=== PATIENT | female | born 1955 | race Caucasian/White ===

== ENCOUNTER 2016-04-30 08:11 | Day surgery (SDC) | payer OTHER ==
[2016-04-25 10:50] VITALS: BMI 24.9
[~2016-04-30 08:11] MED LIST: LACTATED RINGERS 1,000 ML IV SCH; LIDOCAINE 1% 20 ML VIAL (10MG/ML) FOR IV START INTRADERMA PRN
[2016-04-30] MEDS ORDERED: LACTATED RINGERS 1,000 ML IV ONE (08:22)
[2016-04-30 08:26] VITALS: RESP 18; TEMP 98
[2016-04-30] MEDS ORDERED: LIDOCAINE 1% 20 ML VIAL (10MG/ML) FOR IV START INTRADERMA ONE (08:33)
[2016-04-30] MEDS ORDERED: GLUCAGON 1 MG/ML VIAL ONE (08:35)
[2016-04-30] MEDS ORDERED: LIDOCAINE 1% INJ 10MG/ML (20 ML MDV) ONE (08:35)
[2016-04-30] MEDS ORDERED: PROPOFOL 10 MG/ML 20 ML VIAL IV ONE (08:35)
--- NOTE | 2016-04-30 08:40 | P.GSHP ---
History of Present Illness H&P Date: 04/30/16 Chief Complaint: Screening colonoscopy This is a 58-year-old female who presents today for screening colonoscopy. She denies any significant GI complaints. Her last colonoscopy was over 10 years ago. - Constitutional Constitutional: Reports as per HPI Past Medical History Past Medical History: GERD/Reflux Additional Past Medical History / Comment(s): OSTEOPENIA History of Any Multi-Drug Resistant Organisms: None Reported Past Surgical History: Tonsillectomy Additional Past Surgical History / Comment(s): EYE SX X 3. D & C. COLONOSCOPY X 2 Past Anesthesia/Blood Transfusion Reactions: No Reported Reaction Past Psychological History: No Psychological Hx Reported Smoking Status: Former smoker Past Alcohol Use History: Occasional Additional Past Alcohol Use History / Comment(s): QUIT SMOKING 1984 Past Drug Use History: None Reported - Past Family History Sister(s) Family Medical History: Cancer Mother Family Medical History: Cancer Medications and Allergies Home Medications Medication Instructions Recorded Confirmed Type Alendronate Sodium [Fosamax] 70 mg PO TH 04/25/16 04/25/16 History Omeprazole [PriLOSEC] 10 mg PO DAILY 04/25/16 04/30/16 History Allergies Allergy/AdvReac Type Severity Reaction Status Date / Time venom-honey bee Allergy Anaphylaxis Verified 04/25/16 10:44 Surgical - Exam Vital Signs Temp Pulse Resp BP Pulse Ox 98.0 F 75 18 127/63 98 04/30/16 08:25 04/30/16 08:25 04/30/16 08:25 04/30/16 08:25 04/30/16 08:25 - General well developed, no distress - Eyes PERRL - ENT normal pinna - Neck no masses - Respiratory normal expansion - Cardiovascular Rhythm: regular - Abdomen Abdomen: soft, non tender Assessment and Plan Plan: We'll perform screening colonoscopy.
--- NOTE | 2016-04-30 09:03 | P.OP ---
Date of Procedure: 04/30/16 Preoperative Diagnosis: Screening colonoscopy Postoperative Diagnosis: Rectal polyp Mild diverticular changes Procedure(s) Performed: Colonoscopy Anesthesia: MAC Surgeon: Damián Will Pathology: other (Rectal polyp) Condition: stable Disposition: PACU Description of Procedure: The patient's placed on the endoscopy table in the lateral position. She received IV sedation. Digital rectal exam was performed which revealed no abnormalities. The flexible colonoscope was then placed patient anus and passed throughout the entire colon. The ileocecal valve was visualized. Cecum , ascending and transverse colon appeared normal. In the descending; was some mild diverticular changes. Scope was then brought back the rectum and a small polyp seen this removed the forcep. Scope was withdrawn for patient.
[2016-04-30 09:22] VITALS: BP 103/67; PULSE 61
== END 2016-04-30 09:42 | disposition home or self-care (01) ==
LOC: ORWHC2ENDO 08:11
PROVIDERS: ATTEND Surgery
DX: Z12.11 Encounter for screening for malignant neoplasm of colon (principal); K62.1 Rectal polyp; K57.30 Diverticulosis of large intestine without perforation or abscess without bleeding; K21.9 Gastro-esophageal reflux disease without esophagitis; M85.80 Other specified disorders of bone density and structure, unspecified site; Z79.899 Other long term (current) drug therapy; Z91.030 Bee allergy status; Z87.891 Personal history of nicotine dependence
CPT/HCPCS: 88305; 45380; J1610; J2001; J2704

== ENCOUNTER → 2016-10-22 | Outpatient (CLI) | payer OTHER ==
[2016-10-22 12:45] LABS: ALT 48 U/L (9-52); AST 37 U/L (14-36); Alkaline Phosphatase 74 U/L (38-126); Anion Gap 9 mmol/L; Blood Urea Nitrogen 14 mg/dL (7-17); Calcium 9.6 mg/dL (8.4-10.2); Carbon Dioxide 26 mmol/L (22-30); Chloride 105 mmol/L (98-107); Glucose 81 mg/dL (74-99); Non-African American GFR(MDRD) >60 (>60 ml/min/1.73 sqM); Potassium 4.1 mmol/L (3.5-5.1); Sodium 140 mmol/L (137-145); Total Bilirubin 0.6 mg/dL (0.2-1.3); Total Protein 7.4 g/dL (6.3-8.2)
--- NOTE | 2016-10-22 13:30 | BD ---
EXAMINATION TYPE: MG DEXA axial skeleton. DATE OF EXAM: 10/22/2016 COMPARISON: NONE CLINICAL HISTORY: Postmenopausal female. Height: 64 IN Weight: 142 LBS FRAX RISK QUESTIONS: Alcohol (3 or more units per day): NO Family History (Parent hip fracture): NO Glucocorticoids (More than 3mos): NO (Ex: prednisone, prednisolone, methylprednisolone, dexamethasone, and hydrocortisone). History of Fracture in Adulthood: YES RT TOE FX Secondary Osteoporosis: 1. Type 1 Diabetes: NO 2. Hyperthyroidism: NO 3. Menopause before 45: NO 4. Malnutrition: NO 5. Chronic liver disease: NO Rheumatoid Arthritis: NO Current Tobacco Use: NO RISK FACTORS HISTORY OF: Family History of Osteoporosis: YES Active: YES Diet low in dairy products/other sources of calcium: YES Postmenopausal woman: AGE 47 Take estrogen and/or progesterone medications: NOT NOW How long: TOOK CONTROL FOR 10 YRS MEDICATIONS: Osteoporosis Medications: YES Which medication: Fosamax How Lon YRS Additional Medications: CALCIUM, VIT D, FOSAMAX, GERD MEDS, EXAM MEASUREMENTS: Bone mineral densitometry was performed using the [employer] System. Bone mineral density as measured about the Lumbar spine is: ----- L1-L4(G/cm2): 1.059 T Score Values are as follows: ----- L2: -1.2 ----- L3: -0.4 ----- L4: -1.8 ----- L1-L4: -1.0 Bone mineral density has: Increased 5.4% since study of: 07/20/2014 Bone mineral density about the R hip (g/cm2): 0.700 Bone mineral density about the L hip (g/cm2): 0.691 T Score values are as follows: -----R Neck: -2.4 -----L Neck: -2.5 -----R Total: -1.8 -----L Total: -2.1 Bone mineral density has: Increased 3.5% since study of: 07/20/2014 IMPRESSION: Osteopenia about the lumbar spine and bilateral femoral as such there is increased fracture risk. NOTE: T-SCORE=SD OF THE YOUNG ADULT MEAN.
--- NOTE | 2016-10-23 18:28 | WWHP ---
DATE OF SERVICE: 10/22/16 CHIEF COMPLAINT: The patient is here for her routine gynecological exam and mammogram. HISTORY OF PRESENT ILLNESS: This is a 60-year-old G4, P4, with an LMP of 2002. The patient is without gynecological complaints and denies post menopausal bleeding. PAST MEDICAL HISTORY: Elevated liver enzymes. She was seeing Dr. Brown for this but is no longer is seeing her. She has a history of gastroesophageal reflux disease, seasonal allergies, osteoporosis and mildly elevated cholesterol. She was on bisphosphonates for one year in 2010 and currently is taking bisphosphonates since 2014. Medications: Alendronate 70 mg q week, Calcium 600 mg with Vitamin D3 800 units daily, complete senior Multivitamin daily. Vitamin D3 2000 units daily, glucosamine one daily, Vitamin C 1000 units daily, Omeprazole 20 mg daily. ALLERGIES: No known drug allergies. PAST SURGICAL HISTORY: Multiple eye surgeries in the past, colonoscopy in 2006 and 2016. 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 She has been menopausal since 2002. SOCIAL HISTORY: She quit smoking in 1984 and states she previously used marijuana up until 1984. She has about five to ten alcoholic drinks per week. She is and later . She has been seeing somebody since earlier in 2017 and does not live with him but she has been sexually active. 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 FAMILY HISTORY: Unchanged from the 2016 H&P. REVIEW OF SYSTEMS: She has lost about 8 pounds over the last year. She denies respiratory, cardiac or gastrointestinal problems. PHYSICAL EXAM: Blood pressure 105/63. Height 5 feet 5 inches. Weight 144 pounds. Temperature 98.6. Pulse 68. This is a well developed, well nourished white female who is alert and oriented times three in no acute distress. HEENT: is within normal limits. Neck is supple without mass or thyromegaly. Chest and lungs clear to auscultation. Heart is regular rate and rhythm. Breasts: Without mass or discharge. Axillary exam is negative for adenopathy. Back negative for CVA tenderness. Abdomen is soft and nontender without palpable masses. There is no organomegaly noted. The liver is not palpable. Pelvic exam, external genitalia reveals mild atrophy without lesions. Cervix and vagina reveals mild atrophy without lesions. There is no evidence of prolapse. Uterus is mid position, nongravid size and nontender. There are no palpable adnexal masses or tenderness. Rectovaginal exam negative for mass or tenderness. Negative for occult blood. Extremities nontender. IMPRESSION: 1. A 60-year-old menopausal female with normal gynecological exam. 2. History of osteoporosis doing well on Fosamax. 3. History of elevated liver enzymes. PLAN: 1. Pap smear was deferred since she had a normal one last year. 2. Self breast examination was discussed. 3. Mammogram will be done today. 4. The patient has requested blood testing to recheck the liver function tests. She states she has not had blood work done through her primary care physician recently. Blood tests will include comprehensive chemistry panel and this will include liver function tests, BUN, creatinine and calcium. 5. Osteoporosis management was discussed. I have discussed the importance of adequate calcium, Vitamin D and regular exercise. Bone density testing will be done today. She will continue Fosamax at this time. 6. She will return in one year. TREVOR
--- NOTE | 2016-10-24 10:29 | MM ---
Reason for exam: screening (asymptomatic). Last mammogram was performed 1 year ago. History: Patient is postmenopausal. Family history of breast cancer in mother at age 79. Took hormonal contraceptives for 10 years. Physical Findings: A clinical breast exam by your physician is recommended on an annual basis and results should be correlated with mammographic findings. MG Screening Mammo w CAD Bilateral CC and MLO view(s) were taken. Prior study comparison: October 10, 2015, bilateral MG 3d screening mammo w/cad. July 20, 2014, bilateral MG screening mammo w CAD. There are scattered fibroglandular densities. No suspicious abnormality. No significant changes when compared with prior studies. ASSESSMENT: Negative, BI-RAD 1 RECOMMENDATION: Routine screening mammogram of both breasts in 1 year.
== END | disposition home or self-care (01) ==
LOC: WWCWWP 11:06
PROVIDERS: ATTEND Obstetrics & Gynecology
DX: Z12.31 Encounter for screening mammogram for malignant neoplasm of breast (principal); M85.89 Other specified disorders of bone density and structure, multiple sites
CPT/HCPCS: 80053; 77080; G0202

== ENCOUNTER → 2017-12-16 | Outpatient (CLI) | payer BC ==
[2017-12-16 14:06] VITALS: BP 116/71; PULSE 76; TEMP 97.3; BMI 25.2
--- NOTE | 2017-12-16 15:04 | P.HPOB ---
History of Present Illness H&P Date: 12/16/17 Chief Complaint: The patient is here for her routine gynecologic exam and mammogram. This is a 62-year-old with an LMP of 2002. The patient is without gynecologic complaints and denies any postmenopausal bleeding. Review of Systems The patient has gained 3 pounds over the last year. She denies respiratory, cardiac, or G.I. problems. Past Medical History Past Medical History: GERD/Reflux, Liver Disease (Elevated LFTs 2015) Additional Past Medical History / Comment(s): Osteoporosis on Fosamax since 2014. Seasonal allergies. 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 She has no other history of STDs. History of Any Multi-Drug Resistant Organisms: None Reported Past Surgical History: Tonsillectomy Additional Past Surgical History / Comment(s): EYE SX X 3. D & C. COLONOSCOPY X 2 (last 2016) Past Anesthesia/Blood Transfusion Reactions: No Reported Reaction Past Psychological History: No Psychological Hx Reported Smoking Status: Former smoker (Quit 1984) Past Alcohol Use History: Occasional (8 per week) Additional Past Alcohol Use History / Comment(s): QUIT SMOKING 1984 Past Drug Use History: Marijuana (Quit 1984) Additional History: She she was and later . She has been with her boyfriend since 2016 but does not live with him. 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 - Past Family History Sister(s) Family Medical History: Cancer (Colon cancer) Mother Family Medical History: Cancer (Breast cancer), CVA/TIA, Myocardial Infarction ( [place]) Daughter(s) Additional Family Medical History / Comment(s): Lupus Medications and Allergies Home Medications Medication Instructions Recorded Confirmed Type Alendronate Sodium [Fosamax] 70 mg PO TH 04/25/16 12/16/17 History Omeprazole [PriLOSEC] 10 mg PO DAILY 04/25/16 12/16/17 History Calcium Carbonate [Calcium] PO DAILY 12/16/17 12/16/17 History Cholecalciferol [Vitamin D3] PO DAILY 12/16/17 History Multivitamin [Multivitamins Adult PO DAILY 12/16/17 History Gummies] Allergies Allergy/AdvReac Type Severity Reaction Status Date / Time venom-honey bee Allergy Anaphylaxis Verified 12/16/17 14:08 Exam Vital Signs Temp Pulse BP 12/16/17 13:50 97.3 F L 76 116/71 Intake and Output 12/15/17 12/16/17 12/16/17 22:59 06:59 14:59 Other: Weight 66.678 kg Height 5'4", weight 147 pounds, BMI 25.2. This is a well-developed well-nourished white female who is alert and oriented times 3 in no acute distress. HEENT: Within normal limits. NECK: Supple without mass or thyromegaly. CHEST AND LUNGS: Clear to auscultation. HEART: Regular rate and rhythm. BREASTS: Are without mass or discharge. AXILLARY EXAM: Negative for adenopathy. BACK: Negative for CVA tenderness. ABDOMEN: Soft, nontender, without palpable masses. PELVIC EXAM: Normal external genitalia with mild atrophy. Cervix and vagina appear normal with mild atrophy. There is no unusual discharge. There is no evidence of prolapse. The uterus is midposition, nongravid size and nontender. There are no palpable adnexal masses or tenderness. RECTAL EXAM: rectovaginal exam is negative for mass or tenderness and is negative for occult blood. EXTREMITIES: Nontender. IMPRESSION: 1. 62-year-old menopausal female with normal gynecologic exam. 2. History of osteoporosis on Fosamax since 2014. 3. History of elevated liver function studies. PLAN: 1. Pap smear was performed. 2. Self breast awareness was discussed with the patient. 3. Screening mammogram will be done today. 4. Osteoporosis management was discussed. She will continue alendronate weekly. The electronic prescription will be sent to [facility] pharmacy on . 5. The patient is requesting bloodwork. This will include comprehensive chem panel, CBC, cholesterol and hepatitis panel. 6. I have recommended that she follow up with her primary care physician on a regular basis and for follow-up on her history of elevated liver function enzymes. 7. She will return in one year.
[2017-12-16 16:01] LABS: Albumin 4.6 g/dL (3.5-5.0); Calcium 10.6 mg/dL (8.4-10.2); HCT 43.6 % (34.0-46.0); HGB 14.4 gm/dL (11.4-16.0); MCH 30.7 pg (25.0-35.0); MCV 93.2 fL (80.0-100.0); Mean Platelet Volume 7.2; Platelet Count 240 k/uL (150-450); Potassium 4.9 mmol/L (3.5-5.1); RBC 4.67 m/uL (3.80-5.40); RDW 13.4 % (11.5-15.5); Total Bilirubin 0.4 mg/dL (0.2-1.3); Total Protein 7.9 g/dL (6.3-8.2); WBC 6.2 k/uL (3.8-10.6)
[2017-12-17 04:09] LABS: Hepatitis A Antibody IgM Non-Reactive (Non-Reactive); Hepatitis B Core IgM Non-Reactive (Non-Reactive)
--- NOTE | 2017-12-18 09:54 | MM ---
Reason for exam: screening (asymptomatic). Last mammogram was performed 1 year and 2 months ago. History: Patient is postmenopausal. Family history of breast cancer in mother at age 79. Took hormonal contraceptives for 10 years. Physical Findings: A clinical breast exam by your physician is recommended on an annual basis and results should be correlated with mammographic findings. MG Screening Mammo w CAD Bilateral CC and MLO view(s) were taken. Prior study comparison: October 22, 2016, bilateral MG screening mammo w CAD. October 10, 2015, bilateral MG 3d screening mammo w/cad. There are scattered fibroglandular densities. No significant changes when compared with prior studies. ASSESSMENT: Negative, BI-RAD 1 RECOMMENDATION: Routine screening mammogram of both breasts in 1 year.
== END | disposition home or self-care (01) ==
LOC: WWCWWP 13:33
PROVIDERS: ATTEND Obstetrics & Gynecology
DX: Z12.31 Encounter for screening mammogram for malignant neoplasm of breast (principal); M81.0 Age-related osteoporosis without current pathological fracture; R94.5 Abnormal results of liver function studies; Z00.00 Encounter for general adult medical examination without abnormal findings
CPT/HCPCS: 77067; 80053; 80074; 82465; 85027

== ENCOUNTER → 2018-12-30 | Outpatient (CLI) | payer MEDICARE ==
[2018-12-30 10:32] VITALS: BP 124/83; PULSE 88; RESP 18; TEMP 98; BMI 25.7
--- NOTE | 2018-12-30 11:20 | P.HPOB ---
History of Present Illness H&P Date: 12/30/18 Chief Complaint: The patient is here for her routine gynecologic exam and ma mmogram. This is a 63-year-old with an LMP of 2002. The patient is without gynecologic complaints. Review of Systems She has gained 3 pounds over the last year. She denies respiratory, cardiac and G.I. problems. She denies maltreatment or problems with falling. : she denies any significant problems with urinary leakage. Past Medical History Past Medical History: GERD/Reflux, Liver Disease Additional Past Medical History / Comment(s): Osteoporosis on Fosamax since 2014. Seasonal allergies. Transient elevated LFTs in 2016. 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 She has no other history of STDs. History of Any Multi-Drug Resistant Organisms: None Reported Past Surgical History: Tonsillectomy Additional Past Surgical History / Comment(s): EYE SX X 3. D & C. COLONOSCOPY X 2 (last 2016) Past Anesthesia/Blood Transfusion Reactions: No Reported Reaction Past Psychological History: No Psychological Hx Reported Smoking Status: Former smoker Past Alcohol Use History: Occasional Additional Past Alcohol Use History / Comment(s): QUIT SMOKING 1984 Past Drug Use History: Marijuana Additional History: She is and later . She is currently not seeing anybody at this time. 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 - Past Family History Sister(s) Family Medical History: Cancer Additional Family Medical History / Comment(s): Colon cancer. Mother Family Medical History: Cancer, CVA/TIA, Myocardial Infarction ([place]) Additional Family Medical History / Comment(s): Breast cancer. Daughter(s) Additional Family Medical History / Comment(s): Lupus Medications and Allergies Home Medications Medication Instructions Recorded Confirmed Type Omeprazole [PriLOSEC] 10 mg PO DAILY 04/25/16 12/30/18 History Cholecalciferol [Vitamin D3] 1 tab PO DAILY 12/16/17 12/30/18 History Multivitamin [Multivitamins Adult 1 tab PO DAILY 12/16/17 12/30/18 History Gummies] Alendronate Sodium 70 mg PO WEEKLY #12 tablet 02/17/18 12/30/18 Rx Glucos Sul 2Kcl/MSM/Chond/C/Mn 2 each PO DAILY 12/30/18 12/30/18 History [Glucosamine Chondroitin Cap] Allergies Allergy/AdvReac Type Severity Reaction Status Date / Time venom-honey bee Allergy Anaphylaxis Verified 12/30/18 10:32 Exam Vital Signs Temp Pulse Resp BP Pulse Ox 12/30/18 10:18 98.0 F 88 18 124/83 97 Intake and Output 12/29/18 12/30/18 12/30/18 22:59 06:59 14:59 Other: Weight 68.039 kg Height 5 feet 4 inches, weight 150 pounds, BMI 25.7. This is a well-developed well-nourished white female who is alert and oriented times 3 in no acute distress. HEENT: Within normal limits. NECK: Supple without mass or thyromegaly. CHEST AND LUNGS: Clear to auscultation. HEART: Regular rate and rhythm. BREASTS: Are without mass or discharge. AXILLARY EXAM: Negative for adenopathy. BACK: Negative for CVA tenderness. ABDOMEN: Soft, nontender, without palpable masses. PELVIC EXAM: Normal external genitalia with mild atrophy. Cervix and vagina appear normal with mild atrophy. There is no unusual discharge. There is no evidence of prolapse. The uterus is midposition, nongravid size and nontender. There are no palpable adnexal masses or tenderness. RECTAL EXAM: Rectovaginal exam is negative for mass or tenderness and is negative for occult blood. EXTREMITIES: Nontender. IMPRESSION: 1. 63-year-old menopausal female with normal gynecologic exam. 2. History of osteoporosis on Fosamax since 07/2014 PLAN: 1. Pap smear was deferred since she had a normal one on 12/16/2017. 2. Self breast awareness was discussed with the patient. 3. Screening mammogram will be done today. 4. Osteoporosis prevention was discussed. I have stressed the importance of adequate calcium, vitamin D and regular exercise. Recommended amounts of calcium and vitamin D were also discussed. Bone density testing will be done today. If bone density test is stable she will continue Fosamax through July of 2019 which will complete 5 years use of Fosamax. The electronic prescription will be sent to [facility] pharmacy on and [place]. 5. The patient is requesting screening blood work and this will include, but has of chem panel, CBC and total cholesterol. Last year she had a hepatitis panel and this was negative. 6. STD prevention was discussed. I have stressed the importance of limiting sexual partners and I recommended condom use if she is sexually active. 7. The patient was advised to return in 1-2 years for her well woman examination.
--- NOTE | 2018-12-30 11:55 | BD ---
EXAMINATION TYPE: Axial Bone Density DATE OF EXAM: 12/30/2018 COMPARISON: 2017 CLINICAL HISTORY: Z 78.0 Height: 64 in Weight: 145 FRAX RISK QUESTIONS: Alcohol (3 or more units per day): no Family History (Parent hip fracture): no Glucocorticoids (More than 3mos): no (Ex: prednisone, prednisolone, methylprednisolone, dexamethasone, and hydrocortisone). History of Fracture in Adulthood: yes Secondary Osteoporosis: 1. Type 1 Diabetes: no 2. Hyperthyroidism: no 3. Menopause before 45: no 4. Malnutrition: no 5. Chronic liver disease: no Rheumatoid Arthritis: no Current Tobacco Use: no RISK FACTORS HISTORY OF: Family History of Osteoporosis: yes Active: yes Diet low in dairy products/other sources of calcium: no Postmenopausal woman: yes Take estrogen and/or progesterone medications: not now (hormonal contraceptives about 10 years) Lost more than 2 inches in height since high school: no Frequent falls: no Poor Health: no Hyperparathyroidism: no Adrenal Insufficiency: no MEDICATIONS: Prednisone or other steroids: no Thyroid Medications: no Osteoporosis Medications: yes Which medication: generic Fosamax How Long: over 4 years Additional Medications: Vitamin D Additional History: right toe fracture EXAM MEASUREMENTS: Bone mineral densitometry was performed using the [employer] System. Bone mineral density as measured about the Lumbar spine is: ----- L1-L4(G/cm2): 1.026 T Score Values are as follows: ----- L2: -1.7 ----- L3: -0.5 ----- L4: -1.9 ----- L1-L4: -1.3 Bone mineral density has: Decreased -2.4% since study of: 10/22/2016 Bone mineral density about the R hip (g/cm2): 0.691 Bone mineral density about the L hip (g/cm2): 0.692 T Score values are as follows: -----R Neck: -2.5 -----L Neck: -2.5 -----R Total: -1.9 -----L Total: -2.1 Bone mineral density has: Decreased -1.6% since study of: 10/22/2016 IMPRESSION: Osteopenia (T Score between -2.5 and -1). Values approach osteoporosis. There is slightly increased risk of fracture and the patient may be considered for treatment. Re-Screen 2-5 years. NOTE: T-SCORE=SD OF THE YOUNG ADULT MEAN.
[2018-12-30 12:49] LABS: HCT 42.5 % (34.0-46.0); HGB 13.9 gm/dL (11.4-16.0); MCHC 32.6 g/dL (31.0-37.0); Mean Platelet Volume 6.8; Platelet Count 274 k/uL (150-450); RBC 4.62 m/uL (3.80-5.40); RDW 13.1 % (11.5-15.5); WBC 5.4 k/uL (3.8-10.6)
[2018-12-30 21:13] LABS: African American GFR (CKD) 105.4 (60.0-200.0); Albumin 4.6 g/dL (3.80-4.90); Albumin/Globulin Ratio 2.19 (1.60-3.17); Anion Gap 9.1 mmol/L (4.00-12.00); BUN/Creat Ratio 12.86 Ratio (12.00-20.00); Calcium 9.6 mg/dL (8.7-10.3); Carbon Dioxide 25.9 mmol/L (21.6-31.8); Globulin 2.1 g/dL (1.6-3.3); Potassium 4.4 mmol/L (3.5-5.5); Total Bilirubin 0.4 mg/dL (0.2-1.2); Total Protein 6.7 g/dL (6.2-8.2)
--- NOTE | 2019-01-01 11:58 | MM ---
Reason for exam: screening (asymptomatic). Last mammogram was performed 1 year ago. History: Patient is postmenopausal. Family history of breast cancer in mother at age 79. Took hormonal contraceptives for 10 years. Physical Findings: A clinical breast exam by your physician is recommended on an annual basis and results should be correlated with mammographic findings. MG Screening Mammo w CAD Bilateral CC and MLO view(s) were taken. Prior study comparison: December 16, 2017, bilateral MG screening mammo w CAD. October 22, 2016, bilateral MG screening mammo w CAD. There are scattered fibroglandular densities. There is no discrete abnormality. No significant changes when compared with prior studies. ASSESSMENT: Negative, BI-RAD 1 RECOMMENDATION: Routine screening mammogram of both breasts in 1 year.
--- NOTE | 2019-01-06 11:45 | P.PN ---
Progress Note - Text Progress Note Date: 01/06/19 OUTPATIENT FOLLOW-UP NOTE TEST(S)/RESULTS: Test results from 12/30/2018 include benign mammogram, stable osteopenia, normal CBC, normal comprehensive chem panel with normal LFTs, and total cholesterol 216 METHOD OF NOTIFICATION: The patient was notified by phone. PATIENT COMMENTS: DIAGNOSIS: Benign mammogram and mildly elevated cholesterol with otherwise normal screening blood tests. DISCUSSION: I recommended that she continue Fosamax for 1 additional year which will complete 5 years use. I have stressed the importance of adequate calcium, vitamin D and regular exercise. We will plan on repeating bone density testing in 2-3 years. Her blood work will be sent to her primary care physician, Dr. Thompson. PLAN: The patient was advised to return in 1-2 years for her well woman examination.
== END ==
LOC: WWCWWP 10:07
PROVIDERS: ATTEND Obstetrics & Gynecology
DX: Z12.31 Encounter for screening mammogram for malignant neoplasm of breast (principal); M85.80 Other specified disorders of bone density and structure, unspecified site; Z00.00 Encounter for general adult medical examination without abnormal findings; Z78.0 Asymptomatic menopausal state
CPT/HCPCS: 36415; 77067; 77080; 80053; 82465; 85027

== ENCOUNTER 2019-11-05 07:46 | Day surgery (SDC) | payer MEDICARE ==
[2019-11-03 12:20] VITALS: BMI 24.9
[~2019-11-05 07:46] MED LIST changes: +LIDOCAINE 1% (10MG/ML) FOR IV START INTRADERMA PRN; -LIDOCAINE 1% 20 ML VIAL (10MG/ML) FOR IV START INTRADERMA PRN
[2019-11-05 08:08] VITALS: RESP 16; TEMP 97.1
[2019-11-05] MEDS ORDERED: PROPOFOL 10 MG/ML 20 ML VIAL IV ONE (08:15)
[2019-11-05] MEDS ORDERED: MIDAZOLAM 2 MG/2 ML VIAL ONE (08:15)
--- NOTE | 2019-11-05 08:28 | P.PCN ---
Date of Procedure: 11/05/19 Procedure(s) Performed: BRIEF HISTORY: Patient is a 63-year-old, pleasant, female scheduled for an upper endoscopy for evaluation of long-standing history of GERD with worsening symptoms lately. He was on Prilosec 20 mg daily as needed for recently her symptoms have gotten so much worse with chest pain, severe heartburn and intermittent dysphagia to solids. Her medications were changed to Protonix 40 mg daily 6 weeks ago and since then her symptoms have significantly improved.. PROCEDURE PERFORMED: Esophagogastroduodenoscopy with biopsy. PREOPERATIVE DIAGNOSIS: Severe gastroesophageal reflux symptoms. IV sedation per anesthesia. PROCEDURE: After informed consent was obtained, the patient was brought into the endoscopy unit. IV sedation was administered by Anesthesia under continuous monitoring. Initially the Olympus GIF-140 video endoscope was inserted into the mouth. Esophagus intubated without any difficulty. It was gradually advanced into the stomach and duodenum and carefully examined. The bulb and the second part of the duodenum appeared normal. The scope at this time was withdrawn to the stomach, adequately insufflated with air, and upon careful examination, mucosa of the antrum, had mild gastritis and biopsies were done from this area. The body, cardia and the fundus appeared normal. The scope was then withdrawn into the esophagus. Small hiatal hernia noted. The GE junction was located at 36 cm from the incisors. There were linear erosions noted in the distal es ophagus consistent with LA grade B reflux esophagitis. There was a sharp segment of Alberts's esophagus extending 3 mm proximal to the GE junction which was also biopsied. Rest of esophagus appeared normal and the patient tolerated the procedure well. IMPRESSION: 1. Linear erosions in the distal esophagus consistent with LA grade B reflux esophagitis. 2. Small hiatal hernia and questionable short segment Alberts's esophagus 3. Mild antral gastritis. RECOMMENDATIONS: The findings of this examination were discussed with the patient as well as a family. She was advised to follow with the biopsy results. In the meantime she was advised to continue with Protonix 40 mg daily and follow antireflux measures..
[2019-11-05 08:32] VITALS: PULSE 69
[2019-11-05 08:46] VITALS: BP 131/62
== END 2019-11-05 09:15 | disposition home or self-care (01) ==
LOC: ORWHC2ENDO 07:46
PROVIDERS: ATTEND Internal Medicine Gastroenterology
DX: K21.0 Gastro-esophageal reflux disease with esophagitis (principal); K29.70 Gastritis, unspecified, without bleeding; K44.9 Diaphragmatic hernia without obstruction or gangrene; K22.10 Ulcer of esophagus without bleeding; Z79.899 Other long term (current) drug therapy
CPT/HCPCS: 88305; 43239; J2250; J2704

== ENCOUNTER → 2021-06-13 | Outpatient (CLI) | payer MEDICARE ==
[2021-06-13 11:05] VITALS: BP 121/84; PULSE 83; RESP 17; TEMP 98.1
--- NOTE | 2021-06-13 11:51 | P.HPOB ---
History of Present Illness H&P Date: 06/13/21 Chief Complaint: The patient is here for her routine gynecologic exam. This is a 65-year-old with an LMP of 2002. The patient is without gynecologic complaints and denies any postmenopausal bleeding. She is requesting routine blood work since she does not see her PCP on a regular basis. Review of Systems The patient's weight has been stable over the last year. She denies respiratory, cardiac, or G.I. problems. Past Medical History Past Medical History: GERD/Reflux Additional Past Medical History / Comment(s): Alberts's esophagus/ GERD. Osteoporosis(s/p 5yrs alendronate use) . Seasonal allergies. Transient elevated LFTs in 2016. Oral cold sores. 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 She has no other history of STDs. History of Any Multi-Drug Resistant Organisms: None Reported Past Surgical History: Tonsillectomy Additional Past Surgical History / Comment(s): EYE SX X 3. D & C. COLONOSCOPY X 2 (last 2016) Past Anesthesia/Blood Transfusion Reactions: No Reported Reaction Past Psychological History: No Psychological Hx Reported Smoking Status: Former smoker Past Alcohol Use History: Occasional (3 or 4 per week. She has been trying to cut back.) Additional Past Alcohol Use History / Comment(s): QUIT SMOKING 1984 Past Drug Use History: Marijuana (Not daily use.) Additional History: She is and later . She is not seeing anybody at this time and has not been sexually active this past year. 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 - Past Family History Sister(s) Family Medical History: Cancer Additional Family Medical History / Comment(s): Colon cancer- Mother Family Medical History: Cancer, CVA/TIA, Myocardial Infarction ([place]) Additional Family Medical History / Comment(s): Breast cancer. Daughter(s) Additional Family Medical History / Comment(s): Lupus Medications and Allergies Home Medications Medication Instructions Recorded Confirmed Type Cholecalciferol [Vitamin D3] 2,000 units PO DAILY 12/16/17 06/13/21 History Multivitamin [Multivitamins Adult 1 tab PO DAILY 12/16/17 06/13/21 History Gummies] Glucos Sul 2Kcl/MSM/Chond/C/Mn 2 each PO DAILY 12/30/18 06/13/21 History [Glucosamine Chondroitin Cap] Pantoprazole Sodium [Protonix] 40 mg PO DAILY 11/03/19 06/13/21 History Biotin 10,000 mcg PO DAILY 05/03/20 06/13/21 History Calcium Carbonate [Calcium] 600 mg PO DAILY 05/03/20 06/13/21 History Turmeric/Curcurmin 1 tab PO DAILY 05/03/20 06/13/21 History Vitamin C/Zinc 1 tab PO DAILY 05/03/20 06/13/21 History Allergies Allergy/AdvReac Type Severity Reaction Status Date / Time venom-honey bee Allergy Anaphylaxis Verified 06/13/21 10:47 Exam Vital Signs Temp Pulse Resp BP Pulse Ox 06/13/21 10:49 98.1 F 83 17 121/84 96 Intake and Output 06/12/21 06/13/21 06/13/21 22:59 06:59 14:59 Other: Weight 68.946 kg Height 5 feet 4 inches, weight 152 pounds, BMI 26.1. This is a well-developed well-nourished white female who is alert and oriented times 3 in no acute distress. HEENT: Within normal limits. NECK: Supple without mass or thyromegaly. CHEST AND LUNGS: Clear to auscultation. HEART: Regular rate and rhythm. BREASTS: Are without mass or discharge. AXILLARY EXAM: Negative for adenopathy. BACK: Negative for CVA tenderness. ABDOMEN: Soft, nontender, without palpable masses. PELVIC EXAM: Normal external genitalia with mild atrophy. Cervix and vagina appear normal with mild atrophy. There is no unusual discharge. There is no evidence of prolapse. The uterus is midposition, nongravid size and nontender. There are no palpable adnexal masses or tenderness. RECTAL EXAM: Rectovaginal exam is negative for mass or tenderness and is negative for occult blood. EXTREMITIES: Nontender. IMPRESSION: 1. 65-year-old menopausal female with normal gynecologic exam. 2. History of osteoporosis status post 5 years use of alendronate ending in 2019. PLAN: 1. Pap smears have been discontinued. 2. Self breast awareness was discussed with the patient. We have also dis cussed symptoms associated with inflammatory breast cancer. 3. Screening mammogram is due and the order slip was given to the patient for this. 4. Osteoporosis management was discussed. I have recommended bone density testing and the order slip was given to the patient for this. 5. The patient is requesting screening blood work since she will not be seeing her PCP in the near future. An order slip for CBC, comprehensive chem panel, lipid profile, TSH and vitamin D level was given to the patient. These tests will be done fasting. 6. She had Covid in 2020. She has not received a cold vaccination. She understands CBC recommends vaccination even though she has had Covid. She will consider this. 7. She is due for colonoscopy. She will look into doing this through Dr. Kothari who did her last one. 8. She was advised to return in one year for her annual well woman exam.
== END ==
LOC: WWCWWP 10:30
PROVIDERS: ATTEND Obstetrics & Gynecology
DX: Z01.419 Encounter for gynecological examination (general) (routine) without abnormal findings (principal); Z78.0 Asymptomatic menopausal state; Z87.39 Personal history of other diseases of the musculoskeletal system and connective tissue; Z87.891 Personal history of nicotine dependence; Z91.030 Bee allergy status

== ENCOUNTER → 2021-06-15 | Outpatient (CLI) | payer MEDICARE ==
[2021-06-15 18:30] LABS: HCT 43.4 % (37.2-46.3); HGB 13.5 g/dL (12.0-15.0); MCH 29.3 pg (27.0-32.0); MCHC 31.1 g/dL (32.0-37.0); MCV 94.1 fL (80.0-97.0); Mean Platelet Volume 10.5 fL (9.5-12.2); NRBC Per 100 WBC 0 /100 WBCS (0.0-0.0); Platelet Count 275 X 10*3/uL (140-440); RBC 4.61 X 10*6/uL (4.10-5.20); RDW 13.3 % (11.5-14.5); WBC 6.14 X 10*3/uL (4.50-10.00)
[2021-06-15 20:51] LABS: ALT 58 U/L (8-44); AST 42 U/L (13-35); African American GFR (CKD) 93.2 (60.0-200.0); Albumin 4.7 g/dL (3.8-4.9); Albumin/Globulin Ratio 1.73 (1.60-3.17); Alkaline Phosphatase 114 U/L (41-126); Blood Urea Nitrogen 10.8 mg/dL (9.0-27.0); Calcium 10.1 mg/dL (8.7-10.3); Carbon Dioxide 24.9 mmol/L (20.0-27.5); Chloride 103 mmol/L (96-109); Chol/HDL Ratio 2.97 Ratio; Globulin 2.7 g/dL (1.6-3.3); Glucose 92 mg/dL (70-110); LDL Cholesterol,Calculated 118.2 mg/dL (0.0-131.0); Non-African American GFR(CKD) 80.4 (60.0-200.0); Potassium 4.6 mmol/L (3.5-5.5); Sodium 138 mmol/L (135-145); Total Protein 7.4 g/dL (6.2-8.2)
--- NOTE | 2021-06-18 10:06 | MM ---
Reason for exam: screening (asymptomatic). Last mammogram was performed 1 year and 1 month ago. History: Patient is postmenopausal. Family history of breast cancer in mother at age 79. Took hormonal contraceptives for 10 years. Physical Findings: A clinical breast exam by your physician is recommended on an annual basis and results should be correlated with mammographic findings. MG Screening Mammo w CAD Bilateral CC and MLO view(s) were taken. Prior study comparison: May 03, 2020, bilateral MG screening mammo w CAD. December 30, 2018, bilateral MG screening mammo w CAD. There are scattered fibroglandular densities. There is no discrete abnormality. No significant changes when compared with prior studies. ASSESSMENT: Negative, BI-RAD 1 RECOMMENDATION: Routine screening mammogram of both breasts in 1 year.
== END | disposition home or self-care (01) ==
LOC: RADMAMWWP 09:39
PROVIDERS: ATTEND Obstetrics & Gynecology
DX: Z00.00 Encounter for general adult medical examination without abnormal findings (principal); Z12.31 Encounter for screening mammogram for malignant neoplasm of breast; Z78.0 Asymptomatic menopausal state; Z80.3 Family history of malignant neoplasm of breast
CPT/HCPCS: 36415; 77067; 80053; 80061; 82306; 84443; 85027

== ENCOUNTER 2021-11-29 08:27 | Day surgery (SDC) | payer MEDICARE ==
[2021-11-28 10:20] VITALS: BMI 24.9
[2021-11-29] MEDS ORDERED: PROPOFOL 10 MG/ML 20 ML VIAL IV ONE (08:45)
[2021-11-29 08:58] VITALS: TEMP 97.5
[2021-11-29] MEDS ORDERED: LACTATED RINGERS 1,000 ML IV ONE ×2 (08:59)
--- NOTE | 2021-11-29 09:43 | P.GSHP ---
History of Present Illness H&P Date: 11/29/21 Chief Complaint: History of colon polyps This a 65-year-old female who presents today for colonoscopy. Patient's has a previous History of colon polyps. Past Medical History Past Medical History: GERD/Reflux Additional Past Medical History / Comment(s): Alberts's esophagus/ GERD.. Seasonal allergies. History of Any Multi-Drug Resistant Organisms: None Reported Past Surgical History: Tonsillectomy Additional Past Surgical History / Comment(s): EYE SX -X 3. D & C. COLONOSCOPY X 3 Past Anesthesia/Blood Transfusion Reactions: No Reported Reaction Smoking Status: Former smoker - Past Family History Sister(s) Family Medical History: Cancer Additional Family Medical History / Comment(s): Colon cancer- Mother Family Medical History: Cancer, CVA/TIA, Myocardial Infarction ([place]) Additional Family Medical History / Comment(s): Breast cancer. Daughter(s) Additional Family Medical History / Comment(s): Lupus Medications and Allergies Home Medications Medication Instructions Recorded Confirmed Type Cholecalciferol [Vitamin D3] 5,000 units PO DAILY 12/16/17 11/28/21 History Multivitamin [Multivitamins Adult 1 tab PO DAILY 12/16/17 11/28/21 History Gummies] Glucos Sul 2Kcl/MSM/Chond/C/Mn 2 each PO DAILY 12/30/18 11/28/21 History [Glucosamine Chondroitin Cap] Biotin 10,000 mcg PO DAILY 05/03/20 11/28/21 History Calcium Carbonate [Calcium] 600 mg PO DAILY 05/03/20 11/28/21 History Vitamin C/Zinc 1 tab PO DAILY 05/03/20 11/28/21 History Esomeprazole Magnesium [NexIUM] 40 mg PO DAILY 11/28/21 11/28/21 History Allergies Allergy/AdvReac Type Severity Reaction Status Date / Time venom-honey bee Allergy Anaphylaxis Verified 11/28/21 10:00 Surgical - Exam Vital Signs Temp Pulse Resp BP Pulse Ox 97.5 F L 80 18 128/66 97 11/29/21 08:57 11/29/21 08:57 11/29/21 08:57 11/29/21 08:57 11/29/21 08:57 - General well developed, well nourished, no distress - Eyes PERRL - ENT normal pinna - Neck no masses - Respiratory normal expansion - Cardiovascular Rhythm: regular - Abdomen Abdomen: soft, non tender Assessment and Plan Assessment: History of colon polyps. We'll perform colonoscopy.
--- NOTE | 2021-11-29 10:04 | P.OP ---
Date of Procedure: 11/29/21 Preoperative Diagnosis: History of colon polyps Postoperative Diagnosis: Mild diverticulosis Procedure(s) Performed: Colonoscopy Anesthesia: MAC Surgeon: Damián Will Pathology: none sent Condition: stable Disposition: PACU Description of Procedure: The patient's placed on the endoscopy table in the lateral position. She received IV sedation. Digital rectal exam was performed. This revealed no ebonized. The flexible colonoscope was then placed the patient's anus and passed throughout the entire colon. The ileocecal valve was visualized. The cecum, ascending and transverse colon appeared normal. The descending colon appeared normal. The sigmoid colon was a few scattered diverticula. Scope was then brought back the rectum this appeared normal. Scope was withdrawn for patient.
[2021-11-29 10:11] VITALS: RESP 16
[2021-11-29 10:29] VITALS: BP 122/60; PULSE 64
== END 2021-11-29 10:48 | disposition home or self-care (01) ==
LOC: ORWHC2ENDO 08:27
PROVIDERS: ATTEND Surgery
DX: Z12.11 Encounter for screening for malignant neoplasm of colon (principal); K57.30 Diverticulosis of large intestine without perforation or abscess without bleeding; K21.9 Gastro-esophageal reflux disease without esophagitis; K22.70 Barrett's esophagus without dysplasia; Z90.89 Acquired absence of other organs; Z87.891 Personal history of nicotine dependence; Z80.0 Family history of malignant neoplasm of digestive organs; Z82.49 Family history of ischemic heart disease and other diseases of the circulatory system; Z80.3 Family history of malignant neoplasm of breast; Z80.8 Family history of malignant neoplasm of other organs or systems; Z81.1 Family history of alcohol abuse and dependence; Z79.899 Other long term (current) drug therapy; Z86.010 Personal history of colon polyps; Z91.038 Other insect allergy status
CPT/HCPCS: G0105; J2704; 45378

== ENCOUNTER → 2021-12-10 | Outpatient (CLI) | payer MEDICARE ==
[2021-12-10 15:25] LABS: ALT 45 U/L (8-44); AST 36 U/L (13-35); African American GFR (CKD) 103.9 (60.0-200.0); Albumin 4.6 g/dL (3.8-4.9); Albumin/Globulin Ratio 1.45 (1.60-3.17); Alkaline Phosphatase 120 U/L (41-126); BUN/Creat Ratio 14.86 Ratio (12.00-20.00); Blood Urea Nitrogen 10.4 mg/dL (9.0-27.0); Chloride 100 mmol/L (96-109); Globulin 3.1 g/dL (1.6-3.3); Glucose 97 mg/dL (70-110); LDL Cholesterol,Calculated 120.9 mg/dL (0.0-131.0); Non-African American GFR(CKD) 89.7 (60.0-200.0); Potassium 4.1 mmol/L (3.5-5.5); Sodium 137 mmol/L (135-145); Total Protein 7.7 g/dL (6.2-8.2); VLDL Calculation 18.62 mg/dL (5.00-40.00)
== END | disposition home or self-care (01) ==
LOC: LABWHC1 10:37
PROVIDERS: ATTEND Internal Medicine Geriatric Medicine
DX: E78.5 Hyperlipidemia, unspecified (principal); R94.5 Abnormal results of liver function studies
CPT/HCPCS: 36415; 80053; 80061

== ENCOUNTER → 2022-12-20 | Outpatient (CLI) | payer MEDICARE ==
--- NOTE | 2022-12-20 12:18 | BD ---
EXAMINATION TYPE: Axial Bone Density DATE OF EXAM: 12/20/2022 CLINICAL HISTORY: 67 years old Female. ICD-10 CODE: M81.0 AGE RELATED OSTEOPOROSIS Height: 64 Weight: 152.2 FRAX RISK QUESTIONS: Alcohol (3 or more units per day): no Family History (Parent hip fracture): no Glucocorticoids (More than 3mos): no History of Fracture in Adulthood: no Secondary Osteoporosis: 1. Type 1 Diabetes: no 2. Hyperthyroidism: no 3. Menopause before 45: no 4. Malnutrition: no 5. Chronic liver disease: no Rheumatoid Arthritis: no Current Tobacco Use: no RISK FACTORS HISTORY OF: Hip Fracture (Right/Left): no Spine Fracture: no History of Wrist Fracture: no Surgery to Spine/Hip(right/left)/Wrist (right/left): no Family History of Osteoporosis: mother, sister, daughter Active: yes Diet low in dairy products/other sources of calcium: yes Postmenopausal woman: yes Take estrogen and/or progesterone medications: no Lost more than 2 inches in height since high school: no Frequent falls: no Poor Health: no Hyperparathyroidism: no Adrenal Insufficiency: no MEDICATIONS: Prednisone or other steroids: no Thyroid Medications: no Osteoporosis Medications:no Additional Medications: Reflux meds, Multi Vit., Vit D, Calcium, Magnesium, Tumeric Additional History: EXAM MEASUREMENTS: Bone mineral densitometry was performed using the [employer]. Bone mineral density as measured about the Lumbar spine is: ----- L1-L4(G/cm2): 1.044 T Score Values are as follows: ----- L1: -1.5 ----- L2: -2.0 ----- L3: 0.1 ----- L4: -1.3 ----- L1-L4: -1.1 Z Score Values are as follows: ----- L1: 0.0 ----- L2: -0.5 ----- L3: 1.7 ----- L4: 0.2 ----- L1-L4: 0.4 Bone mineral density has: increased 1.8 % since study of: 12/30/2018 Bone mineral density about the R hip (g/cm2): 0.784 Bone mineral density about the L hip (g/cm2): 0.788 T Score values are as follows: -----R Neck: -2.5 -----L Neck: -2.1 -----R Total: -1.8 -----L Total: -1.7 Z Score values are as follows: -----R Neck: -1.0 -----L Neck: -0.6 -----R Total: -0.5 -----L Total: -0.4 Bone mineral density has: increased 4.7 % since study of: 12/30/2018 FRAX%s: The graph provided illustrates a 15.0% chance for a major osteoporotic fx and a 3.8% chance f or the hips probability for fx in 10 years time. IMPRESSION: Osteopenia (T Score between -2.5 and -1). There is slightly increased risk of fracture and the patient may be considered for treatment. Re-Screen 2-5 years. NOTE: T-SCORE=SD OF THE YOUNG ADULT MEAN.
--- NOTE | 2022-12-23 08:55 | MM ---
Reason for Exam: Screening (asymptomatic). Last mammogram was performed 1 year(s) and 6 month(s) ago. Patient History: Menarche at age 7. First Full-Term at age 14. Postmenopausal. Patient has history of breast feeding. Patient used Hormonal Contraceptives for 10 years. Mother had breast cancer, age 79. Risk Values: Jayleen 5 year model risk: 3.5%. NCI Lifetime model risk: 10.6%. Prior Study Comparison: 10/22/2016 Bilateral Screening Mammogram, [facility]. 12/16/2017 Bilateral Screening Mammogram, [facility]. 12/30/2018 Bilateral Screening Mammogram, [facility]. 05/03/2020 Bilateral Screening Mammogram, [facility]. 06/15/2021 Bilateral Screening Mammogram, [facility]. Tissue Density: There are scattered fibroglandular densities. Findings: Analyzed By CAD. There is no suspicious group of microcalcifications or new suspicious mass. Overall Assessment: Negative, BI-RAD 1 Management: Screening Mammogram of both breasts in [address] [facility] will attempt to contact patient to return for supplemental views and ultrasound if indicated. Patient should continue monthly self-breast exams. A clinical breast exam by your physician is recommended on an annual basis. This exam should not preclude additional follow-up of suspicious palpable abnormalities. Note on Jayleen scores and lifetime risk: 1. A Jayleen score greater than 3% is considered moderate risk. If this is the case, consider specialist referral to assess eligibility for a risk reducing agent. 2. If overall lifetime risk for the development of breast cancer is 20% or higher, the patient may qualify for future screening with alternating mammogram and breast MRI. Electronically signed and approved by: Cal Matos DO
== END | disposition home or self-care (01) ==
LOC: RADMAMWWP 10:50
PROVIDERS: ATTEND Internal Medicine Geriatric Medicine
DX: Z12.31 Encounter for screening mammogram for malignant neoplasm of breast (principal); M81.0 Age-related osteoporosis without current pathological fracture; M85.89 Other specified disorders of bone density and structure, multiple sites; Z78.0 Asymptomatic menopausal state; Z80.3 Family history of malignant neoplasm of breast
CPT/HCPCS: 77063; 77067; 77080

== ENCOUNTER → 2024-03-10 | Outpatient (CLI) | payer MEDICARE, OTHER ==
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
== END | disposition home or self-care (01) ==
LOC: RADMRIMAIN 18:27
PROVIDERS: ATTEND Specialist
DX: D18.00 Hemangioma unspecified site (principal); F07.81 Postconcussional syndrome; H53.2 Diplopia; I67.82 Cerebral ischemia; G31.1 Senile degeneration of brain, not elsewhere classified
CPT/HCPCS: 70551